=== PATIENT | female | born 1995 | race Caucasian/White ===

== ENCOUNTER 2018-03-02 16:20 | Inpatient (IN) ==
[2018-03-02] MEDS ORDERED: PROMETHAZINE HCL 12.5 MG in DEXTROSE 5 % IN WATER 50 ML IV PRN ×2 (16:33)
[2018-03-02] MEDS ORDERED: NALBUPHINE HCL 10 MG/ML AMPUL IV PRN (16:33)
[2018-03-02] MEDS ORDERED: ONDANSETRON HCL/PF 2 MG/ML VIAL IV PRN (16:33)
[2018-03-02] MEDS ORDERED: OXYTOCIN/DEXTROSE 5%-WATER 30 UNITS/500 ML BAG IV ONE (16:34)
[2018-03-02] MEDS: RINGER'S SOLUTION,LACTATED 1,000 ML IV PRN (19:20)
[2018-03-02 20:39] LABS: Cocaine Ur Negative (NEGATIVE); Urine Barbiturate Negative (NEGATIVE); Urine Benzodiazepines Negative (NEGATIVE); Urine Opiates Negative (NEGATIVE); Urine PCP Negative (NEGATIVE); Urine THC Negative (NEGATIVE)
[2018-03-02] MEDS: MISOPROSTOL 100 MCG TABLET VG SCH (21:36)
[2018-03-03] MEDS: RINGER'S SOLUTION,LACTATED 1,000 ML IV PRN ×3 (02:50→15:28)
[2018-03-03] MEDS: MISOPROSTOL 100 MCG TABLET VG SCH ×2 (04:52→23:10)
[2018-03-03] MEDS ORDERED: PENICILLIN G POTASSIUM 5 MILLIONUNT in DEXTROSE 5 % IN WATER 100 ML IV ONE ×2 (09:32)
--- NOTE | 2018-03-03 10:24 | PN ---
Progess Note - Interim Date: 03/03/18 Time: 10:22 Narrative: 03/03/18 10:22 Yuliet is doing well this morning. VS reviewed cvx is /-2 AROM for a large amount of clear fluid Start pitocin when ctx space out Pt and spouse updated regarding plan of care
[2018-03-03] MEDS ORDERED: PENICILLIN G POTASSIUM 2.5 MILLIONUNT in DEXTROSE 5 % IN WATER 100 ML IV SCH ×2 (13:08)
[2018-03-03] MEDS: PENICILLIN G POTASSIUM 2.5 MILLIONUNT in DEXTROSE 5 % IN WATER 100 ML IV SCH ×6 (13:45→23:11)
[2018-03-03] MEDS ORDERED: BUPIVACAINE HCL/0.9 % NACL/PF 250 ML EP PRN (15:07)
[2018-03-03] MEDS ORDERED: NALOXONE HCL 1 MG/1 ML SYRG IV PRN (15:07)
[2018-03-03] MEDS ORDERED: ONDANSETRON HCL/PF 2 MG/ML VIAL IV PRN (15:07)
[2018-03-03] MEDS ORDERED: BUPIVACAINE HCL/PF 30 ML VIAL EP SCH (15:15)
--- NOTE | 2018-03-03 15:33 | ANES ---
Anesthesia Pre Procedure Eval Vitals/Labs: Last Vital Signs Temp 36.2 C 03/03/18 15:21 Pulse 48 L 03/03/18 15:21 Resp 18 03/03/18 15:21 BP 140/73 H 03/03/18 15:21 Pulse Ox 98 03/03/18 15:21 HOME MEDICATIONS acetaminophen 325 mg tablet 325 mg PO Q6H PRN 02/13/18 [Last Taken Unknown] acetone (urine) test strips See Dose Instructions .ROUTE .MEDSUPPLY #25 ea 02/13 [Last Taken Unknown] blood sugar diagnostic strips See Dose Instructions .ROUTE .MEDSUPPLY #20 ea 04/25 [Last Taken Unknown] blood-glucose meter kit See Dose Instructions .ROUTE .MEDSUPPLY #1 ea 02/13/18 [ Last Taken Unknown] lancets 28 gauge See Dose Instructions .ROUTE .MEDSUPPLY #25 ea 02/13/18 [Last Taken Unknown] nicotine 21 mg/24 hr daily transdermal patch 1 patch TRANSDERMAL DAILY 02/13/18 [Last Taken 03/02/18] vitamin,calcium,esotfqtk-vwtk-ptvda acid tablet 1 tab PO DAILY [Last Taken Unknown] Allergies/Adverse Reactions: Allergies Allergy/AdvReac Type Severity Reaction Status Date / Time No Known Allergies Allergy Verified 03/02/18 18:33 - Planned Procedure Planned Procedure: Labor epidural Medication List Reviewed:: Yes Allergies Verified: Yes Medical History (Last Updated 02/16/18 @ 14:41 by Tee Romo RN) Gestational diabetes (Acute) Onset Date: ~02/16/18 Anxiety Onset Date: Unknown Tobacco abuse Onset Date: Unknown Deviated nasal septum Onset Date: Unknown Surgical History (Last Updated 02/13/18 @ 10:32 by Ashia Rivera RN) History of myringotomy Onset Date: Unknown Family History (Last Updated 02/13/18 @ 10:34 by Ashia Rivera RN) Father Depression Mother Alive and well Grandmother Myocardial infarction Grandfather Cancer - Cardiovascular Tolerates Activity: Good Heart Sounds: S1 & S2, Regular - Anesthesia Assessment and Plan ASA Class: PS, II Anesthesia Type Plan: Epidural Planned difficult intubation/equipment available: No
--- NOTE | 2018-03-03 15:51 | ANES ---
Anesthesia Procedure Note Procedure Note: ANESTHESIA PROCEDURE NOTE Date of Procedure: 03/03/2018. Time of procedure: 1525. Performed by: Eduin Beal CRNA Food Service Order Clerk: None. Preprocedure diagnosis: Active labor. Post procedure diagnosis: Same. Procedure: Insertion of labor epidural. Indications: The patient is a 22 -year-old female in active labor requesting labor epidural for pain management. Findings: See below. Details of the procedure: The patient was placed in a sitting position. DuraPrep as well as Betadine swabs X3 was applied to the patient's back. Patient was then draped in a sterile fashion. Lidocaine 1% was infiltrated to the skin and subcutaneous tissues at the level of the L3-4 interspace. The epidural space was identified using a 18-gauge Tuohy needle with loss-of- resistance technique. Epidural catheter was inserted to a depth of 10 centimeters at skin. Negative test dose was elicited using 3 mL of 1.5% preservative-free lidocaine plus epinephrine 1 200,000. The epidural catheter was then taped and secured in place. A loading dose of 8 mL of 0.25% preservative-free bupivacaine was administered to the epidural catheter after negative aspiration for blood and CSF. EBL: Minimal. Fluids: N/A. Specimen: N/A. Post procedure condition: The patient tolerated the procedure well. No complications were noted. Thank you for this consultation. Eduin Beal CRNA
--- NOTE | 2018-03-03 15:55 | ANES ---
Post Anesthesia Assessment - Vital Signs Vitals: Last Vital Signs Temp 36.2 C 03/03/18 15:53 Pulse 70 03/03/18 15:53 Resp 20 03/03/18 15:53 BP 140/88 H 03/03/18 15:53 Pulse Ox 100 03/03/18 15:53 Airway Patency: Normal - Mental Status Level Of Consciousness: Awake - N/V Assessment Nausea/Vomiting Presence: None Dehydration:: No
[2018-03-03] MEDS ORDERED: GLYCERIN/WITCH HAZEL LEAF 40 APPL BOX TP PRN (18:48)
[2018-03-03] MEDS ORDERED: SENNOSIDES 8.6 MG TABLET PO PRN (18:48)
[2018-03-03] MEDS ORDERED: OXYTOCIN/DEXTROSE 5%-WATER 30 UNITS/500 ML BAG IV ONE (18:48)
[2018-03-03] MEDS ORDERED: BISACODYL 10 MG SUPP.RECT RC PRN (18:48)
[2018-03-03] MEDS ORDERED: HYDROCORTISONE 30 APPL TUBE TP PRN (18:48)
[2018-03-03] MEDS ORDERED: BENZOCAINE/MENTHOL 81 SPRAY CAN TP PRN (18:48)
[2018-03-03] MEDS ORDERED: oxyCODONE HCL/ACETAMINOPHEN 1 TAB TABLET PO PRN (18:48)
[2018-03-03] MEDS ORDERED: ACETAMINOPHEN 325 MG TABLET PO PRN (18:54)
[2018-03-03] MEDS: IBUPROFEN 800 MG TABLET PO PRN (22:33)
[2018-03-03] MEDS: DOCUSATE SODIUM 100 MG CAPSULE PO SCH (23:10)
[2018-03-04] MEDS: IBUPROFEN 800 MG TABLET PO PRN ×3 (04:26→17:34)
[2018-03-04] MEDS: DOCUSATE SODIUM 100 MG CAPSULE PO SCH ×2 (08:50→20:52)
--- NOTE | 2018-03-04 12:15 | PN ---
Subjective - Date and Time Seen Date: 03/04/18 Time: 12:13 Objective - Review of Systems Generalized/Overall Review: Reports: No Symptoms Reported EENTM: Reports: No Symptoms Reported Respiratory: Reports: No Symptoms Reported Cardiac: Reports: No Symptoms Reported Abdominal: Reports: No Symptoms Reported Genitourinary Symptoms: Reports: No Symptoms Reported Musculoskeletal Complaints: Reports: No Symptoms Reported Neurological: Reports: No Symptoms Reported Skin: Reports: No Symptoms Reported - Vaginal bleeding is normal - Vitals Vitals: Last Vital Signs Temp 36.6 C 03/04/18 11:36 Pulse 64 03/04/18 11:36 Resp 18 03/04/18 11:36 BP 128/74 03/04/18 11:36 Pulse Ox 98 03/04/18 11:36 - Exam Constitutional: Present: Alert, Oriented x3, Cooperative, No distress Breasts: Present: Exam deferred Respiratory: Present: chest non-tender Abdomen: Present: soft /Rectal: Present: Exam deferred Extremity: Present: normal range of motion, non-tender, normal inspection Skin Exam: Present: normal color, warm/dry, no cyanosis Cauti Physician Documentation - Urinary Catheter Management Urethral (Wade) Urethral Indwelling: No Date of Insertion: 03/03/18 Time of Insertion: 16:45 Date of Removal: 03/03/18 Time of Removal: 18:15 Assessment/Plan - Problems/Diagnosis (1) (normal spontaneous vaginal delivery) Problem: Acute Narrative: Discharge tomorrow
--- NOTE | 2018-03-04 12:20 | PN ---
Progess Note - Interim Date: 03/03/18 Time: 19:00 Narrative: 03/04/18 12:15 Delivery Summary The patient is now a 22 yo who presented to the office for a routine obstetrical visit. Ultrasound reviewed at the office visit was consistent with IUGR. Given GA of 37 0/7 weeks a recommendation was made for IOL. was complicated by A1GDM, smoking, and IUGR. The patient received two doses of cytotec followed by AROM for a large amount of clear fluid. Pitocin was then started. The patient received an epidural. She progressed to complete dilation. She delivered a viable male over an intact perineum. Bleeding was minimal with a total EBL of 50mL. Complications: none
[2018-03-04] MEDS: oxyCODONE HCL/ACETAMINOPHEN 1 TAB TABLET PO PRN (18:45)
[2018-03-05] MEDS: IBUPROFEN 800 MG TABLET PO PRN ×4 (02:48→23:26)
[2018-03-05] MEDS: DOCUSATE SODIUM 100 MG CAPSULE PO SCH ×2 (08:25→21:18)
--- NOTE | 2018-03-05 09:52 | PN ---
Subjective - Date and Time Seen Date: 03/05/18 Time: 09:51 Objective - Review of Systems Generalized/Overall Review: Reports: No Symptoms Reported EENTM: Reports: No Symptoms Reported Respiratory: Reports: No Symptoms Reported Cardiac: Reports: No Symptoms Reported Abdominal: Reports: No Symptoms Reported Genitourinary Symptoms: Reports: No Symptoms Reported Musculoskeletal Complaints: Reports: No Symptoms Reported Neurological: Reports: No Symptoms Reported Skin: Reports: No Symptoms Reported Endocrine: Reports: No Symptoms Reported - Vitals Vitals: Last Vital Signs Temp 36.6 C 03/05/18 06:45 Pulse 64 03/05/18 06:45 Resp 20 03/05/18 06:45 BP 115/71 03/05/18 02:49 Pulse Ox 98 03/05/18 06:45 - Exam Constitutional: Present: Alert, Oriented x3, Cooperative Breasts: Present: Exam deferred Respiratory: Present: chest non-tender Cardiovascular/Chest: Present: normal peripheral pulses Abdomen: Present: Normal bowel sounds Extremity: Present: normal range of motion, non-tender Skin Exam: Present: normal color, warm/dry, no cyanosis Appearance: Present: appropriate appearance - For discharge Cauti Physician Documentation - Urinary Catheter Management Urethral (Wade) Urethral Indwelling: No Date of Insertion: 03/03/18 Time of Insertion: 16:45 Date of Removal: 03/03/18 Time of Removal: 18:15 Assessment/Plan - Problems/Diagnosis (1) (normal spontaneous vaginal delivery) Problem: Acute
[2018-03-05] MEDS: oxyCODONE HCL/ACETAMINOPHEN 1 TAB TABLET PO PRN ×3 (13:07→23:26)
[2018-03-05 20:22] VITALS: BP 127/79
--- NOTE | 2018-03-07 14:12 | OR ---
Operative Report - Dictated Report Narrative: 03/04/18 12:15 Delivery Summary The patient is now a 22 yo who presented to the office for a routine obstetrical visit. Ultrasound reviewed at the office visit was consistent with IUGR. Given GA of 37 0/7 weeks a recommendation was made for IOL. was complicated by A1GDM, smoking, and IUGR. The patient received two doses of cytotec followed by AROM for a large amount of clear fluid. Pitocin was then started. The patient received an epidural. She progressed to complete dilation. She delivered a viable male infant over an intact perineum in the OA position. Cord clamping delayed for approximately 1 minute. Placenta delivered complete, intact, with a 3V cord. Bleeding was minimal with a total EBL of 50mL. Anesthesia: epidural Complications: none
== END 2018-03-05 23:59 | disposition home or self-care (01) | DRG 775 ==
LOC: OB 18:13
PROVIDERS: ADMIT Obstetrics & Gynecology; ATTEND Obstetrics & Gynecology
CPT/HCPCS: 59025; 80307; 86850; 86900; 88307; G0479